=== PATIENT | female | born 1990 | race Caucasian/White ===

== ENCOUNTER → 2019-02-02 | Outpatient (CLI) | payer OTHER ==
[2019-02-02 14:03] LABS: Candida species (DNA Probe) Negative (NEGATIVE); G. vaginalis (DNA Probe) Positive (NEGATIVE); T. vaginalis (DNA Probe) Negative (NEGATIVE)
== END | disposition home or self-care (01) ==
LOC: LAB SHORT 10:49 → LAB 10:49
PROVIDERS: Advanced Practice Midwife
DX: N76.0 Acute vaginitis (principal)
CPT/HCPCS: 87480; 87510; 87660

== ENCOUNTER 2019-11-02 14:49 | Day surgery (SDC) | payer OTHER ==
[~2019-11-02] VITALS: Ht 165.1 cm; Wt 119.0 kg
[~2019-11-02 14:49] MED LIST: IBUP800; Ventolin/Prove6.7 GM
[2019-11-02] MEDS ORDERED: MONT10T (15:21)
[2019-11-02] MEDS ORDERED: VITAMIN D31000 UNI1 (15:21)
[2019-11-02] MEDS ORDERED: Imitrex50 MG (15:21)
--- NOTE | 2019-11-02 16:31 | NUR ---
11/02/19 1631 Trevin Bishop 87 ML FLUID DEFICIT
== END 2019-11-02 17:33 | disposition home or self-care (01) ==
LOC: ORSCSDS 14:49
PROVIDERS: Obstetrics & Gynecology
PROC: 0UB98ZX Excision of Uterus, Via Natural or Artificial Opening Endoscopic, Diagnostic (ICD-10-PCS; principal; 2019-11-02 16:00)
DX: N93.9 Abnormal uterine and vaginal bleeding, unspecified (principal); E66.01 Morbid (severe) obesity due to excess calories; Z68.41 Body mass index [BMI] 40.0-44.9, adult
CPT/HCPCS: J1100; J1885; J2250; J2405; J2704; J3010; J7120

== ENCOUNTER → 2020-12-04 | Outpatient (CLI) | payer OTHER ==
[~2020-12-04] MED LIST changes: +Imitrex50 MG; +MONT10T; +VITAMIN D31000 UNI1
[2020-12-04 18:11] LABS: Protein, Urine Quantitative 9.6 mg/dL (0.0-11.9)
== END | disposition home or self-care (01) ==
LOC: LAB 17:51 → LAB SHORT 17:51
PROVIDERS: Obstetrics & Gynecology
DX: I10 Essential (primary) hypertension (principal)
CPT/HCPCS: 81050; 84156

== ENCOUNTER 2021-04-14 10:10 | Inpatient (IN) | payer OTHER ==
[~2021-04-14] VITALS: Ht 165.1 cm; Wt 116.0 kg
[2021-04-14 10:54] LABS: BASOPHILS ABSOLUTE AUTO 0.01 K/mm3 (0.00-0.23); BASOPHILS PERCENT AUTO 0 % (0-2); EOSINOPHILS PERCENT AUTO 1 % (0-6); Hemoglobin 11.1 g/dL (11.5-16.0); IMMATURE GRAN ABSOLUTE AUTO 0.04 K/mm3 (0.00-0.10); IMMATURE GRAN PERCENT AUTO 0 % (0-1); LYMPHOCYTES ABSOLUTE AUTO 1.47 K/mm3 (0.84-5.20); LYMPHOCYTES PERCENT AUTO 15 % (21-46); MONOCYTES ABSOLUTE AUTO 0.43 K/mm3 (0.16-1.47); MONOCYTES PERCENT AUTO 4 % (4-13); Mean Corpuscular HGB 27.5 pg (26.0-34.0); Mean Corpuscular HGB Conc 32.6 g/dL (31.5-36.5); Mean Corpuscular Volume 84 fL (80-100); Mean Platelet Volume 11.5 fL (9.1-12.4); NEUTROPHILS ABSOLUTE AUTO 7.98 K/mm3 (1.96-9.15); NEUTROPHILS PERCENT AUTO 80 % (41-73); Platelet Count 223 K/mm3 (150-400); RDW Coefficient Variation 14.6 % (11.7-14.2); RDW Standard Deviation 45.1 fL (35.1-46.3); Red Blood Cell Count 4.03 M/mm3 (3.80-5.20); White Blood Cell Count 10.03 K/mm3 (4.00-11.30)
[2021-04-14 11:18] LABS: Creatinine, Urine Random 87.6 mg/dL (27.00-270.00); Protein, Urine Random 20.4 mg/dL (0.0-11.9); Protein/Creat Ratio, Ur Random 0.2
[2021-04-14 11:19] LABS: Alanine Aminotransfer (ALT/SGP 27 U/L (12-78); Albumin, Blood 2.2 g/dL (3.4-5.0); Albumin/Globulin Ratio 0.5 (0.8-1.8); Alk Phos 142 U/L (50-136); Anion Gap 6 mmol/L (6-16); Aspartate Aminotrans (AST/SGOT 10 U/L (12-37); Bilirubin, Total 0.4 mg/dL (0.1-1.0); Blood Urea Nitrogen 6 mg/dL (8-24); Bun/Creatinine Ratio 10.3 (12.0-20.0); CO2, Blood 22 mmol/L (21-32); Chloride, Blood 109 mmol/L (98-108); Creatinine, Blood 0.58 mg/dL (0.40-1.00); Globulin, Blood 4.6 g/dL (2.2-4.0); Glomerular Filtration Rate >60 (60-); Glucose, Blood 87 mg/dL (70-99); Potassium, Blood 3.9 mmol/L (3.5-5.5); Sodium, Blood 137 mmol/L (136-145); Total Protein, Blood 6.8 g/dL (6.4-8.2)
[2021-04-14] MEDS ORDERED: METF500 PO ×2 (11:38→11:39)
[2021-04-15 19:42] LABS: PO2 Cord - Arterial < 13 mmHg (16-20)
[2021-04-15 19:43] LABS: PCO2 Cord - Arterial 59.2 mmHg (40-50); pH Cord - Arterial 7.24 (7.28-7.35)
[2021-04-15 19:44] LABS: PCO2 Cord - Venous 40.6 mmHg (40-50); PO2 Cord - Venous 22.9 mmHg (28-32); pH Umbilical Cord - Venous 7.35 (7.26-7.35)
--- NOTE | 2021-04-15 19:45 | NUR ---
RT STOOD BY FOR C SECTION. BABY WAS DELIVERED TO WARMER, DRIED AND STIMULATED. BABY HAD STRONG CRY, NO RESP DISTRESS NOTED. RT EXCUSED. RN TO CALL IF RT NEEDED.
[2021-04-16 05:56] LABS: BASOPHILS ABSOLUTE AUTO 0.01 K/mm3 (0.00-0.23); BASOPHILS PERCENT AUTO 0 % (0-2); EOSINOPHILS ABSOLUTE AUTO 0.02 K/mm3 (0.00-0.68); EOSINOPHILS PERCENT AUTO 0 % (0-6); Hematocrit 29.2 % (33.0-51.0); Hemoglobin 9.5 g/dL (11.5-16.0); IMMATURE GRAN ABSOLUTE AUTO 0.05 K/mm3 (0.00-0.10); IMMATURE GRAN PERCENT AUTO 0 % (0-1); LYMPHOCYTES ABSOLUTE AUTO 1.69 K/mm3 (0.84-5.20); LYMPHOCYTES PERCENT AUTO 14 % (21-46); MONOCYTES ABSOLUTE AUTO 0.65 K/mm3 (0.16-1.47); MONOCYTES PERCENT AUTO 6 % (4-13); Mean Corpuscular HGB 27.6 pg (26.0-34.0); Mean Corpuscular HGB Conc 32.5 g/dL (31.5-36.5); Mean Corpuscular Volume 85 fL (80-100); Mean Platelet Volume 12.1 fL (9.1-12.4); NEUTROPHILS ABSOLUTE AUTO 9.39 K/mm3 (1.96-9.15); NEUTROPHILS PERCENT AUTO 80 % (41-73); Platelet Count 193 K/mm3 (150-400); RDW Coefficient Variation 14.6 % (11.7-14.2); RDW Standard Deviation 44.9 fL (35.1-46.3); Red Blood Cell Count 3.44 M/mm3 (3.80-5.20); White Blood Cell Count 11.81 K/mm3 (4.00-11.30)
--- NOTE | 2021-04-16 17:22 | NUR ---
CALLED FOR ORDER FOR MOTRIN, AND GIVEN ADDITIONAL ORDER FOR IRON INFUSION.
--- NOTE | 2021-04-17 06:00 | NUR ---
SHADY MOMIN BY PM SHIFT AT 0600, GOT PT UP TOSHOWER AND PT GOT DIZZY, GOT PT BACK TO BED.
[2021-04-17 11:04] LABS: BASOPHILS ABSOLUTE AUTO 0.02 K/mm3 (0.00-0.23); BASOPHILS PERCENT AUTO 0 % (0-2); EOSINOPHILS ABSOLUTE AUTO 0.05 K/mm3 (0.00-0.68); EOSINOPHILS PERCENT AUTO 0 % (0-6); Hematocrit 27.8 % (33.0-51.0); Hemoglobin 9.1 g/dL (11.5-16.0); IMMATURE GRAN ABSOLUTE AUTO 0.09 K/mm3 (0.00-0.10); IMMATURE GRAN PERCENT AUTO 1 % (0-1); LYMPHOCYTES ABSOLUTE AUTO 1.02 K/mm3 (0.84-5.20); LYMPHOCYTES PERCENT AUTO 7 % (21-46); MONOCYTES ABSOLUTE AUTO 0.57 K/mm3 (0.16-1.47); MONOCYTES PERCENT AUTO 4 % (4-13); Mean Corpuscular HGB Conc 32.7 g/dL (31.5-36.5); Mean Corpuscular Volume 86 fL (80-100); Mean Platelet Volume 10.9 fL (9.1-12.4); NEUTROPHILS PERCENT AUTO 88 % (41-73); Platelet Count 187 K/mm3 (150-400); RDW Coefficient Variation 14.8 % (11.7-14.2); RDW Standard Deviation 45.9 fL (35.1-46.3); Red Blood Cell Count 3.25 M/mm3 (3.80-5.20); White Blood Cell Count 14.65 K/mm3 (4.00-11.30)
[2021-04-18] MEDS ORDERED: Percocet 5-3251 EACH PO (10:31)
[2021-04-18] MEDS ORDERED: IBUP800 PO (10:31)
--- NOTE | 2021-04-22 16:07 | NUR ---
04/22/21 1607 Felicity Sotomayor VERIFICATIONS: EDIT CHART.
== END 2021-04-18 10:45 | disposition home or self-care (01) | DRG 788 ==
LOC: BC 10:10 → OBS 10:10 → BC 10:51
PROVIDERS: ADMIT Obstetrics & Gynecology
PROC: 3E0234Z Introduction of Serum, Toxoid and Vaccine into Muscle, Percutaneous Approach (ICD-10-PCS; 2021-04-15)
PROC: 10D00Z1 Extraction of Products of Conception, Low, Open Approach (ICD-10-PCS; principal; 2021-04-15 19:00)
DX: O13.4 Gestational [pregnancy-induced] hypertension without significant proteinuria, complicating childbirth (principal); O24.425 Gestational diabetes mellitus in childbirth, controlled by oral hypoglycemic drugs; O72.1 Other immediate postpartum hemorrhage; O71.3 Obstetric laceration of cervix; O64.8XX0 Obstructed labor due to other malposition and malpresentation, not applicable or unspecified; Z3A.39 39 weeks gestation of pregnancy; Z37.0 Single live birth; D25.9 Leiomyoma of uterus, unspecified; O34.13 Maternal care for benign tumor of corpus uteri, third trimester; O76 Abnormality in fetal heart rate and rhythm complicating labor and delivery; Z23 Encounter for immunization; Z86.16 Personal history of COVID-19; Z88.1 Allergy status to other antibiotic agents; Z88.8 Allergy status to other drugs, medicaments and biological substances; Z91.040 Latex allergy status; Z88.0 Allergy status to penicillin; O99.02 Anemia complicating childbirth; D64.9 Anemia, unspecified
CPT/HCPCS: 36415; 51702; 80053; 82570; 82803; 82947; 84156; 85025; 86850; 86900; 86901; A9270; C1765; J0690; J1200; J1580; J1885; J2001; J2590; J2765; J2916; J3010; J7030; J7120